=== PATIENT | female | born 1945 | race Caucasian/White ===

== ENCOUNTER 2025-01-09 20:30 | Emergency (ER) | payer MEDICARE ==
[~2025-01-09] VITALS: Ht 167.6 cm; Wt 63.0 kg
[~2025-01-09 20:30] MED LIST: ALL DAY ALLERGY10 MG PO; BENICAR HCT 201 EACH PO; BENICAR20 MG PO; CALCIUM; CALTRATE-600 W1 EACH PO; CENTRUM ADULTS1 EACH PO; FAMOTIDINE20 MG PO; MAGNESIUM; MELATONIN3 MG PO; NAPROXEN250 MG PO; OMEPRAZOLE40 MG PO; OSTEO BI-FLEX1 EAC2; RALOXIFENE HCL60 MG PO; ROLOXIFENE PO; STOOL SOFTENER100 M1; ULTRAM 50MG50 MG PO; VITAMIN C1000 MG PO; VITAMIN C250 M1 PO; VITAMIN D; VITAMIN D32000 UNIT PO
[2025-01-09 20:33] VITALS: PULSE 96; RESP 18
[2025-01-09] MEDS: SODIUM CHLORIDE 0.9% 1000ML 1,000 ML IV ONE (21:27)
[2025-01-09] MEDS: ACETAMINOPHEN 325 MG TAB PO ONE (21:27)
[2025-01-09] MEDS: AZITHROMYCIN 250 MG TAB PO ONE (22:46)
[2025-01-09 22:50] VITALS: TEMP 100
[2025-01-09] MEDS ORDERED: AZITHROMYCIN250 MG PO (23:15)
[2025-01-09 23:27] VITALS: BP 161/74; RESP 18; TEMP 99; O2SAT 98
== END 2025-01-09 23:38 | disposition home or self-care (01) ==
LOC: FSED 20:35
DX: J18.1 Lobar pneumonia, unspecified organism (principal); I10 Essential (primary) hypertension; M54.2 Cervicalgia; Z88.0 Allergy status to penicillin; Z88.2 Allergy status to sulfonamides
CPT/HCPCS: 0223U; 71046; 73030; 80053; 81003; 83518 ×2; 83605; 85025; 87040; 87400; 99284; J7030